=== PATIENT | female | born 1980 ===

== ENCOUNTER 2016-09-03 15:52 | Inpatient (IN) ==
[2016-09-03] MEDS ORDERED: RHO(D) IMMUNE GLOBULIN 300 MCG SYRINGE IM ONE (16:03)
[2016-09-03] MEDS ORDERED: MEASLES/MUMPS/RUBELLA VACCINE 0.5 ML VIAL SUBCUT ONE (16:03)
[2016-09-03] MEDS ORDERED: HYDROCORTISONE 2.5% RECTAL CREAM 30 GM TUBE TOP PRN (16:03)
[2016-09-03] MEDS ORDERED: BISACODYL 10 MG SUPP RECTAL PRN (16:03)
[2016-09-03] MEDS ORDERED: WITCH HAZEL PADS 100/JAR TOP PRN (16:03)
[2016-09-03] MEDS ORDERED: ACETAMINOPHEN 325 MG TABLET PO PRN (16:03)
[2016-09-03] MEDS ORDERED: DIPH/TET/ACEL PERT BOOSTER VACCINE 0.5 ML VIAL IM ONE (16:03)
[2016-09-03] MEDS ORDERED: OXYTOCIN/LR 20 UNIT/1,000 ML BAG IV ONE (16:03)
[2016-09-03] MEDS ORDERED: ONDANSETRON 4 MG/2 ML VIAL IV PRN (16:03)
[2016-09-03] MEDS ORDERED: oxyCODONE/ACETAMINOPHEN 5-325 MG TABLET PO PRN (16:03)
[2016-09-03] MEDS ORDERED: BENZOCAINE 20%/MENTHOL 0.5% SPRAY 56 GM CAN TOP PRN (16:03)
[2016-09-03] MEDS ORDERED: LANOLIN 50% CREAM 0.3 OZ TUBE TOP PRN (16:03)
[2016-09-03] MEDS: oxyCODONE/ACETAMINOPHEN 5-325 MG TABLET PO PRN ×2 (16:35→22:10)
--- NOTE | 2016-09-03 16:35 | OB/GYN History & Physical ---
History of Present Illness Chief complaint: Status post precipitous vaginal delivery @ [facility] History of present illness: Ms. Snyder is a 36 year old female who was 7 para 7 limits 8. The patient has a history of twin delivery. She presents to the labor department status post vaginal delivery of a liveborn infant at the [facility]. The patient states she did not know she was . She has not received any care. She has had 6 previous vaginal deliveries. There are no labs. EVERT. The patient will be admitted for management. Allergies Allergy/AdvReac Type Severity Reaction Status Date / Time No Known Allergies Allergy Verified 09/03/16 16:03 12 point system: reviewed and no additional remarkable complaints except as stated Medical,Surgical,& Family Hx - Medical History Medical History: noncontributory - Surgical History Surgical History: noncontributory HEENT Surgeries: Surgical HX of: Eye Surgery - Family History Family History: noncontributory - Social History Smoking Status: Current every day smoker Have you smoked in the last 12 months: Yes Marital Status: Single Lives With:: Significant Other Functional capacity: independent ambulation Exam [employer] - Constitutional General appearance: no acute distress - Antepartum / Post Post Exam Breast: bilateral: normal Abdomen obstetrics: Present: bowel sounds normal Vulva: bilateral: normal Vagina: Present: normal moisture, discharge (light lovchia rubra) Uterus exam: Present: enlarged (FF ML) Anus/Rectum: Present: normal perianal skin - Neck Neck exam: Present: normal inspection - Respiratory Respiratory exam: Present: clear to auscultation bilaterally - Cardiovascular Cardiovascular exam: Present: regular rate and rhythm - GI/Abdominal GI/Abdominal exam: Present: normal bowel sounds, soft - Extremities Exam Extremities exam: Present: normal inspection - Neurological Exam Neurological exam: Present: alert, oriented X3 - Psychiatric Psychiatric exam: Present: normal affect, normal mood - Skin Skin exam: Present: normal color, warm Assessment and Plan (1) Precipitate labor, delivered, current hospitalization Status: Acute Assessment and plan: Initiate routine care. Current Visit: Yes
[2016-09-03] MEDS ORDERED: ACETAMINOPHEN/CODEINE 300-30 MG TABLET PO PRN (16:40)
[2016-09-03] MEDS: DOCUSATE SODIUM 100 MG CAPSULE PO SCH (20:24)
[2016-09-03] MEDS: IBUPROFEN 800 MG TABLET PO PRN (20:25)
[2016-09-04] MEDS: oxyCODONE/ACETAMINOPHEN 5-325 MG TABLET PO PRN ×3 (06:40→20:00)
[2016-09-04 06:42] LABS: Basophils % 0.3 % (0.0-0.8); Eosinophils # 0.3 10*3/uL (0.0-0.87); Hematocrit 19.6 VOL% (35.7-47.0); Hemoglobin 6.5 GM/DL (12.0-16.0); Immature Granulocytes % 0.8 %; Immature Granulocytes Absolute 0.09 #; Lymphocytes # 2.6 10*3/uL (1.4-4.0); Mean Corpuscular HGB Conc 33.2 GM/DL (32-36); Mean Corpuscular Hemoglobin 32 PG (27-34); Mean Platelet Volume 9.7 FL (9.6-12.0); Monocytes # 0.3 10*3/uL (0.11-0.8); Neutrophils # 7.8 10*3/uL (1.4-7.4); Neutrophils % 69.9 % (38.7-73.9); Platelet Count 273 T/CUMM (130-400); Red Blood Count 2.02 MC/CUMM (3.8-5.5); White Blood Count 11.2 T/CUMM (4-12)
[2016-09-04 07:09] LABS: Hepatitis B Surface Ab Result Negative
[2016-09-04 07:49] LABS: HIV Antigen/Antibody Result Nonreactive (Nonreactive)
--- NOTE | 2016-09-04 09:37 | OB/GYN Progress Note ---
Assessment and Plan (1) Precipitate labor, delivered, current hospitalization Status: Acute Assessment and plan: Initiate routine care. 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 Exam BALL MAKER - Constitutional Vitals: Vital Signs Temp Pulse Resp BP Pulse Ox 09/04/16 09:33 20 09/04/16 08:00 90 18 09/04/16 07:23 97.3 F L 67 18 120/80 97 09/04/16 04:00 97.9 F 64 16 126/80 95 09/04/16 02:02 75 138/73 09/04/16 00:00 97 F L 83 20 150/95 96 09/03/16 19:45 97.3 F L 82 20 148/81 99 09/03/16 18:50 84 20 156/91 99 09/03/16 18:30 88 20 133/83 99 09/03/16 18:00 97.4 F L 94 H 20 136/82 100 09/03/16 16:22 97.2 F L 76 18 137/87 97 General appearance: no acute distress - Antepartum / Post Post Exam Breast: bilateral: normal Abdomen obstetrics: Present: bowel sounds normal Vagina: Present: discharge (light lochia rubra) Uterus exam: Present: enlarged Anus/Rectum: Present: normal perianal skin - Head Head exam: Present: normal inspection - Respiratory Respiratory exam: Present: clear to auscultation bilaterally - Cardiovascular Cardiovascular exam: Present: regular rate and rhythm - GI/Abdominal GI/Abdominal exam: Present: normal bowel sounds, soft - Extremities Exam Extremities exam: Present: normal inspection - Back Exam Back exam: Present: normal inspection - Neurological Exam Neurological exam: Present: alert, oriented X3 - Psychiatric Psychiatric exam: Present: normal affect, normal mood - Skin Skin exam: Present: normal color, warm Results - Labs CBC & BMP: 09/04/16 06:23
[2016-09-04] MEDS: FERROUS SULFATE 325 MG TABLET PO SCH ×2 (09:45→20:00)
[2016-09-04] MEDS: DOCUSATE SODIUM 100 MG CAPSULE PO SCH ×3 (09:45→20:00)
[2016-09-04] MEDS ORDERED: SODIUM CHLORIDE 0.9% 250 ML IV PRN (10:00)
[2016-09-04] MEDS: IBUPROFEN 800 MG TABLET PO PRN ×2 (11:30→20:00)
[2016-09-04 18:54] LABS: Hematocrit 25.4 VOL% (35.7-47.0); Hemoglobin 8.5 GM/DL (12.0-16.0)
[2016-09-05 07:08] LABS: Hematocrit 24.2 VOL% (35.7-47.0); Hemoglobin 8.3 GM/DL (12.0-16.0)
[2016-09-05 07:16] VITALS: BP 133/80
[2016-09-05] MEDS: IBUPROFEN 800 MG TABLET PO PRN (07:25)
[2016-09-05] MEDS: DOCUSATE SODIUM 100 MG CAPSULE PO SCH (09:25)
[2016-09-05] MEDS: FERROUS SULFATE 325 MG TABLET PO SCH (09:25)
--- NOTE | 2016-09-05 11:23 | Discharge Summary ---
Hospital Course - Hospital Course Hospital Course: Mrs. Snyder presented to the hospital after [facility] She is followed a normal Pitocin she has done well. Her bleeding is minimal no odor. Her vital signs were stable after receiving 2 units of packed RBCs. Her is in the NICU where it will remain for growth. Her pain is minimal. She is voiding and ambulating without difficulty. She will be discharged to home discretions for pain and follow-up appointment in our office. Diagnosis - Discharge Diagnosis (1) Precipitate labor, delivered, current hospitalization Status: Acute Specialty Discharge - Follow Up or Referrals Follow up with: Jennifer Arce MD [Physician] - (follow up in 6 weeks) Discharge Plan - Discharge Data Disposition: Disch To Home/Self Care Condition at Discharge: Stable Discharge Diet: advance to your usual diet Activity: resume usual activities as tolerated Hygiene: may shower Weight Bearing at Discharge: weight bear as tolerated Driving: no restrictions Contact your physician if you experience:: fever over 101, pain uncontrolled by pain medications - Discharge Medications New Acetamin/Codeine 300-30 Tab [Tylenol/Codeine #3] 2 tablet PO Q6H PRN #30 tablet PRN Reason: Pain Mild (1-3) Ferrous Sulfate Tab [Feosol Original Tab] 325 mg PO BID #60 tablet Ibuprofen Tab [Motrin Tab] 800 mg PO Q6H PRN #30 tablet PRN Reason: Pain Moderate (4-7) - Follow Up or Referral - Forms/Instructions Instructions: Depression (GEN), Perineal Care (DC), Vaginal Delivery (DC), Anemia (DC), Bleeding (DC), Sitz Bath (DC) Exam - Constitutional Vitals: Period Temp Pulse Resp BP Sys/[place] Pulse Ox Last 24 Hr 97.1 F-98.8 F 58-82 16-20 124-148/66-95 96-99 General appearance: no acute distress - Head Head exam: Present: normal inspection - Respiratory Respiratory exam: Present: clear to auscultation bilaterally - Cardiovascular Cardiovascular exam: Present: regular rate and rhythm - GI/Abdominal GI/Abdominal exam: Present: normal bowel sounds, soft - Extremities Exam Extremities exam: Present: normal inspection - Back Exam Back exam: Present: normal inspection - Neurological Exam Neurological exam: Present: alert, oriented X3 - Psychiatric Psychiatric exam: Present: normal affect, normal mood - Skin Skin exam: Present: normal color, warm Discharge Results Labs on day of discharge: Labs from last 24 hours 09/05/16 09/04/16 09/04/16 07:02 18:28 06:20 Hgb 8.3 L 8.5 L D Hct 24.2 L 25.4 L Blood Type O POSITIVE Antibody Screen Negative Crossmatch See Detail DS: Provider Date of admission: 09/03/16 16:03 Primary care physician: Marimar Suarez MD Attending physician on admission: Jennifer Arce MD Consults: 09/03/16 16:03 Consult to Autocad Operator [CONS] Routine Consult Autocad Operator: Breast Feeding Discharging clinician: Jazmine Mckenzie CNM Expected date of discharge: 09/05/16
[2016-09-05] MEDS: oxyCODONE/ACETAMINOPHEN 5-325 MG TABLET PO PRN (11:50)
== END 2016-09-05 16:50 | disposition home or self-care (01) | DRG 776 ==
LOC: N.LDOUT 15:52 → N.LD 15:54 → N.OB 18:12
PROVIDERS: ADMIT Obstetrics & Gynecology; ATTEND Obstetrics & Gynecology